=== PATIENT | female | born 2000 | race Caucasian/White ===

== ENCOUNTER 2020-04-21 18:57 | Inpatient (IN) | payer BC ==
[~2020-04-21] VITALS: Ht 172.7 cm; Wt 110.0 kg
--- NOTE | 2020-04-21 20:06 | NUR ---
Pt arrived to the floor. Pt. is A&OX3, assessment complete. Pt. rates pain at a 6 on pain scale. Denies needs at this time.
[2020-04-21 20:40] VITALS: BP 148/86; PULSE 73; TEMP 98
--- NOTE | 2020-04-21 22:45 | NUR ---
Unable to establish IV access. This nurse, Geraldine, RN and Graduate Student Instructor attempted without success. Dr. Crooks notified. New orders received for PO pain meds and a dose of abx.
[2020-04-21 23:26] VITALS: BP 140/85; PULSE 74; TEMP 97.6
[2020-04-22] VITALS (9 sets, daily range): BP systolic 132–147; BP diastolic 70–94; PULSE 67–90; TEMP 97.5–99.1
[2020-04-22 07:50] LABS: HEMATOCRIT 42.1 % (37.0-47.0); HEMOGLOBIN 13.9 g/dl (12.5-16.0); MEAN CELL VOLUME 81 fl (80.0-100.0); MEAN CORPUSCULAR HEMOGLOBIN 27 pg (27.0-31.0); MEAN CORPUSCULAR HGB CONC 33 g/dl (33.0-37.0); MEAN PLATELET VOLUME 8.5 fl (7.4-10.4); PLATELET COUNT 389 K/mm3 (130-400); RED BLOOD COUNT 5.19 M/mm3 (4.10-5.30); REDCELL DISTRIBUTION WIDTH-CV 13.2 % (11.5-14.5)
[2020-04-22 08:12] LABS: ALBUMIN 4.4 gm/dL (3.5-5.0); BILIRUBIN,TOTAL 5.7 mg/dL (0.0-1.0); CALCIUM 9.6 mg/dL (8.4-10.2); CREATININE, serum 0.89 (0.52-1.25); POTASSIUM 4.1 mmol/L (3.4-5.0); TOTAL PROTEIN 8.2 gm/dL (6.4-8.2)
--- NOTE | 2020-04-22 08:58 | NUR ---
PT TO SURGERY PER BED WITH GWENDOLYN TURNER.
--- NOTE | 2020-04-22 09:58 | NUR ---
PT TO ROOM 328 PER BED WITH REPORT FROM GWENDOLYN TURNER PACU @ 4771. VSS, PT REPORTS LESS NAUSEA AT THIS TIME. PLAN ON CHOLEYCYSTECTOMY TOMMOROW OR NEXT DAY DEPENDING ON LIPASE LEVELS. AT BEDSIDE.
--- NOTE | 2020-04-22 11:33 | NUR ---
X Ray Inspector prayed and offered support with patient while family was in room.
--- NOTE | 2020-04-22 11:43 | NUR ---
REPORT TO MAGGIE TURNER.
--- NOTE | 2020-04-22 12:00 | NUR ---
SW met with patient to conduct intake evaluation. Patient lives at home in [facility] with her Yuri (P# [phone]). Patient has DPOA paperwork at home, but has not filled it out. SW explained that paperwork can be filledo out here if patient wishes. Patient reported that she will think about it and have SW contacted if she decided to. Patient's PCP is Dr. Emery, and her pharmacy is [facility] in [place]. Patient requires no DME and does not need help with ADLs. Patient plans to return home with at discharge. Social work will follow as needs progress.
--- NOTE | 2020-04-22 16:21 | NUR ---
Dr. Crooks in to see patient
--- NOTE | 2020-04-22 18:05 | NUR ---
Patient doing well this afternoon. Requested additional medicaitons for pain at this time due to abd pain 08/17, medications given at this time. Patient also states nausea after eating supper, zofran given. Spouse at bedside. Denies further needs at this time. Fluids infusing per orders. Will report off to shift manager.
[2020-04-23 03:52] VITALS: BP 122/66; PULSE 92; TEMP 99
[2020-04-23 06:50] LABS: BASO % 0.1 % (0.0-2.0); EOS # 0.1 (0.0-0.7); EOS % 0.8 % (0-4.0); HEMATOCRIT 38.3 % (37.0-47.0); HEMOGLOBIN 12.4 g/dl (12.5-16.0); LYMPH # 1.4 (1.2-3.4); LYMPH % 10.6 % (20.0-51.0); MEAN CELL VOLUME 82 fl (80.0-100.0); MEAN CORPUSCULAR HEMOGLOBIN 26 pg (27.0-31.0); MEAN CORPUSCULAR HGB CONC 32 g/dl (33.0-37.0); MEAN PLATELET VOLUME 8.5 fl (7.4-10.4); MONO # 0.8 (0.1-0.6); MONO % 6.1 % (1.7-9.3); PLATELET COUNT 348 K/mm3 (130-400); REDCELL DISTRIBUTION WIDTH-CV 13.2 % (11.5-14.5)
[2020-04-23 07:05] LABS: ALBUMIN 3.3 gm/dL (3.5-5.0); BILIRUBIN,TOTAL 1.3 mg/dL (0.0-1.0); CALCIUM 8.5 mg/dL (8.4-10.2); CREATININE, serum 0.71 (0.52-1.25); POTASSIUM 4.1 mmol/L (3.4-5.0); TOTAL PROTEIN 6.6 gm/dL (6.4-8.2)
[2020-04-23 07:45] VITALS: BP 121/63; PULSE 86; TEMP 98.6
--- NOTE | 2020-04-23 08:41 | NUR ---
PT RESTING IN BED .CURRENTLY NPO. FLUIDS RUNNING ORDERED. POSSIBLE OR TODAY OR TOMORROW. PT REPORTS PO PAIN MEDS EFFECTIVE AT THIS TIME.
[2020-04-23 11:13] VITALS: BP 128/78; PULSE 97; TEMP 98.3
[2020-04-23 15:32] VITALS: BP 119/55; PULSE 108; TEMP 99.6
--- NOTE | 2020-04-23 19:50 | NUR ---
PT IN BED, ASKING FOR PAIN MEDS. NORCO 5/325MG 2 TABS GIVEN AT THIS TIME. IVF INFUSING TO LEFT AC WITHOUT PROBLEM. WILL BE NPO AFTER MIDNIGHT FOR GALLBLADDER SURGERY. PT IS AWARE.
[2020-04-23 22:15] VITALS: BP 120/53; PULSE 93; TEMP 97.5
[2020-04-23 23:47] VITALS: BP 122/60; PULSE 100; TEMP 98
[2020-04-24] VITALS (12 sets, daily range): BP systolic 109–123; BP diastolic 56–67; PULSE 74–106; TEMP 97.6–98.3
--- NOTE | 2020-04-24 04:42 | NUR ---
MEDICATED WITH NORCO 5/325MG 2 TABS PO AT THIS TIME FOR ABD PAIN.
[2020-04-24 06:02] LABS: BASO # 0.1 (0.0-0.2); BASO % 0.3 % (0.0-2.0); EOS # 0.4 (0.0-0.7); EOS % 2.5 % (0-4.0); GRAN # 13.5 (1.4-6.5); HEMOGLOBIN 11.8 g/dl (12.5-16.0); LYMPH # 1.5 (1.2-3.4); LYMPH % 8.6 % (20.0-51.0); MEAN CELL VOLUME 82 fl (80.0-100.0); MEAN CORPUSCULAR HEMOGLOBIN 27 pg (27.0-31.0); MEAN CORPUSCULAR HGB CONC 33 g/dl (33.0-37.0); MEAN PLATELET VOLUME 8.8 fl (7.4-10.4); MONO # 1.4 (0.1-0.6); MONO % 8.2 % (1.7-9.3); PLATELET COUNT 334 K/mm3 (130-400); RED BLOOD COUNT 4.42 M/mm3 (4.10-5.30); REDCELL DISTRIBUTION WIDTH-CV 13.8 % (11.5-14.5)
[2020-04-24 06:05] LABS: HEMATOCRIT 36.1 % (37.0-47.0)
[2020-04-24 06:18] LABS: ALBUMIN 3.2 gm/dL (3.5-5.0); CALCIUM 8.3 mg/dL (8.4-10.2); CREATININE, serum 0.67 (0.52-1.25); POTASSIUM 3.8 mmol/L (3.4-5.0); TOTAL PROTEIN 6.3 gm/dL (6.4-8.2)
--- NOTE | 2020-04-24 07:47 | NUR ---
Patient resting in bed. Reporting gas pain/discomfort. denies needing medication. Only other complaint is of thirst. Mouth swabs provided. She remains NPO. denies nausea at this time. Surgical scrub provided, she has her own toothbrush. Sreedhar truong.
--- NOTE | 2020-04-24 09:29 | NUR ---
Initial visit; Patient states she is having a surgical procedure today. Center Punch Operator offered prayer and God's blessings along with encouragement and assurance.
--- NOTE | 2020-04-24 10:11 | NUR ---
Patient significant other at bedside. Patient all prepped & ready for surgery. Ivf to gravity. Icg green given & pepcid per orders. Patient has brushed her teeth & used surgical scrub
--- NOTE | 2020-04-24 11:18 | NUR ---
Patient to the Or with Tamara. Patient to the waiting room.
--- NOTE | 2020-04-24 14:10 | NUR ---
Patient has returned post op. Tamara gave report. Patient drowsy, but arousable. Reports reflex. Vss on O2. Scds ble. Lap site x4, bandaids CDI. Ice chips provided, denies nausea.
--- NOTE | 2020-04-24 19:30 | NUR ---
Patient doing better this evening. She has ambulated halls twice. Pain managed with kpad & one tab norco. She tolerated a bland dinner without nausea. She has been up and voided. Vitals stable, she remains slightly tachy, She is off O2 but sats have been in low 90s. Encouraged Cough & deep breathing. Lap site bandaids remains CDI. He significant other has gone home for the evening. Bedside report to Bry TURNER.
--- NOTE | 2020-04-24 21:00 | NUR ---
Pt. sitting up in bed. Pt. is A&OX3, assessment complete. INT to lt. ac patent. Pt. reports pain at a 4 on pain scale. Pt. reports pain is ok right now but may need it soon. Will give per orders. Abd. lap sites x4 CDI with bandaids
[2020-04-25 04:00] VITALS: BP 128/68; PULSE 68; TEMP 97.3
[2020-04-25 07:11] VITALS: BP 121/57; PULSE 72; TEMP 97.4
--- NOTE | 2020-04-25 07:45 | NUR ---
Sitting up in bed with eyes open. Alert and oriented x4. Would like pain medication as her pain is starting to increase. [place] administered as prescribed. Abd lap sites x4 with bandaids CDI. Patient hopeful to go home today. Denies additional needs at this time.
--- NOTE | 2020-04-25 08:45 | NUR ---
Sitting up in bed watching TV. Was able to eat breakfast without difficulty. Says that the pain medication is starting to help decrease pain. Denies needs at this time.
--- NOTE | 2020-04-25 10:28 | NUR ---
Sitting up in bed, spouse in room with the patient. Pain okay at this time. Patient asks if Dr. Crooks has said anything about her discharge, explain that we are awaiting him to come in still. Patient denies additional needs at this time.
[2020-04-25 11:11] VITALS: BP 116/58; PULSE 72; TEMP 97.6
[2020-04-25] MEDS ORDERED: NORCO 325 MG-51 TAB PO (12:38)
--- NOTE | 2020-04-25 13:10 | NUR ---
Review all discharge instructions with the patient. Denies questions, verbalizes understanding and signs discharge paperwork. Discharge packet provided to the patient. Spouse is in room and is able to help carry personal belongings. Patient assisted out to POV by ANTOINE Damon, with all belongings.
== END 2020-04-25 13:10 | disposition home or self-care (01) | DRG 417 ==
LOC: JCC 18:57
PROVIDERS: Internal Medicine Gastroenterology; ADMIT Surgery
PROC: 0FC98ZZ Extirpation of Matter from Common Bile Duct, Via Natural or Artificial Opening Endoscopic (ICD-10-PCS; 2020-04-22)
PROC: 8E0W4CZ Robotic Assisted Procedure of Trunk Region, Percutaneous Endoscopic Approach (ICD-10-PCS; 2020-04-24)
PROC: 0FT44ZZ Resection of Gallbladder, Percutaneous Endoscopic Approach (ICD-10-PCS; principal; 2020-04-24 11:30)
DX: K80.63 Calculus of gallbladder and bile duct with acute cholecystitis with obstruction (principal); K85.10 Biliary acute pancreatitis without necrosis or infection; Z20.822 Contact with and (suspected) exposure to COVID-19; Z88.2 Allergy status to sulfonamides
CPT/HCPCS: C1769; J1100; J1170; J1885; J1956; J2250; J2405; J2704; J3010; J3480; J7030; J7120